=== PATIENT | female | born 1970 | race Caucasian/White ===

== ENCOUNTER 2017-10-15 18:45 | Inpatient (IN) | payer BC, OTHER ==
[~2017-10-15] VITALS: Ht 152.4 cm; Wt 68.5 kg
--- NOTE | ~2017-10-15 | CATHLAB ---
[facility] [address] [place] [address] INVASIVE PROCEDURE REPORT Name: VERA DIEGO Room #: 215-P [facility] IN [facility]#: [id number] Admission: 10/15/17 Attend Phys: Fantasma Rubin, Discharge: Date of : 72 Date of Service: 10/17/17 1254 Report #: [id number] THIS REPORT FOR: //name// APPROVED REPORT Study performed: 10/17/2017 07:14:26 Patient Details Patient Status: In-Patient Room #: The patient is a 46 year-old female Event Personnel Ismael Hernandez Hourly Team Members, Judd Doss RN, Sujatha Colmenares Sandifer, David Monitor Procedures Performed Left Heart Cath w/or w/o Coronaries [id number] [facility] [address] Place w/wo Plasty Single LAD [id number] Indication Abnormal ECG, Non-STEMI (>12 hrs to = 24 hrs) Risk Factors Arterial Hypertension, Hypercholesterolemia Admission/Lab Medications/Medications given during procedure Lipid Lowering Agents, ACEI/ARB, Platelet Aff. Inhib., Beta Sonia Procedure Narrative The Right Groin^ was infiltrated with 1% Lidocaine subcutaneous anesthesia. A PINNACLE 6FR Sheath #[id number] sheath was inserted into the RFA^. Coronary angiography was performed using coronary diagnostic catheters. The right coronary system was accessed and visualized with a JR4 catheter. The left coronary system was accessed and visualized with a JL3.5 catheter. The left ventricle was accessed and visualized with a PIGTAIL catheter. Left ventricular/Aortic Valve gradient assessed via catheter pullback. Left ventriculogram was performed in 30 degree projection. Closure device was deployed with a 6 Fr MYNXGRIP 6/7F #[id number]. The patient tolerated the procedure well and there were no complications associated with the procedure. There was no hematoma. Intraoperative Conscious Sedation Sedation start time: 7.39 Case end Time: 8.23 [facility] [place] [address] INVASIVE PROCEDURE REPORT Name: VERA DIEGO Room #: 215-P [facility] IN ..#: [id number] Admission: 10/15/17 Attend Phys: Fantasma Rubin, Discharge: Date of : 72 Date of Service: 10/17/17 1254 Report #: [id number] Fentanyl 50 mcg Fluoro Time: 6.23 minutes Dose: 666 mGy Contrast Type and Amount: Omnipaque 160 ml Diagnostic Cath Left Main No true left main with separate ostia for the LAD and circumflex LAD Severe 90% mid LAD stenosis just beyond the first septal perforating branch. The LAD was otherwise angiographically normal. Multiple aliquots of intracoronary nitroglycerin were administered with persistent, severe mid LAD stenosis Diagonal 1 Moderate, normal Diagonal 2 Distally arising and angiographically normal Circumflex Large, nondominant circumflex comprised of a single bifurcating marginal branch. This vessel was angiographically normal OM1 Large bifurcating marginal branch, angiographically normal Right Coronary Normal right coronary including moderate posterior descending and moderately large posterolateral branches Left Ventriculography The left ventricular ejection fraction is estimated to be 50%. Left ventricular wall motion abnormalities are present. There is no mitral insufficiency. Mild left ventricular dysfunction with hypokinesis involving the inferoapex. EF 50% Hemodynamics The aortic pressure is 156/75 mmHg with a mean of 96 mmHg. The left ventricular pressure is 165/12 mmHg with a mean of mmHg. The left ventricular end diastolic pressure is 19 mmHg. There was no gradient across the aortic valve upon pullback. Pullback from the left ventricle to the aorta revealed no gradient across the aortic valve. PCI Technique Lesion Anticoagulation was achieved with Heparin, Integrilin. Patient was preloaded with Brillinta. Percutaneous coronary intervention was performed on the mid left anterior descending artery segment. The lesion stenosis prior to intervention was 90% with JAYDEN 3 flow. A LAUNCHER 6FR JL3.5 #[id number] Guide Catheter was used to engage the LAD ostium. A Luge Wire .014 x 182CM #[id number] Interventional Guidewire was used to cross the lesion. [facility] [address] [place] [address] INVASIVE PROCEDURE REPORT Name: VERA DIEGO Nancy Room #: 215-P [facility] IN ..#: [id number] Admission: 10/15/17 Attend Phys: Fantasma Rubin, Discharge: Date of : 72 Date of Service: 10/17/17 1254 Report #: [id number] BALLOON DILATION A Balloon catheter Euphora RX 2.5 x 10 #[id number] was inserted and inflated up to 10.00atm for 25seconds. Repeat angiography revealed the following post-dilatation results: Moderate residual stenosis. STENT DEPLOYMENT A drug-eluting stent RESOLUTE RX 3.5 X 12 #[id number] was inserted and inflated up to 10.00atm for 28seconds. Repeat angiography revealed the following post-stent deployment results: 0% residual stenosis. POST STENT DEPLOYMENT BALLOON DILATION A Balloon catheter TREK NC RX 3.5 X 8 #[id number] was inserted and inflated up to 14.00atm for 30seconds. Repeat angiography revealed the following post-dilatation results: 0% residual stenosis. Additional Inflation: 14.00atm for 23seconds. Final angiography reveals 0 % stenosis with JAYDEN 3 flow. Conclusion 1. Mild left ventricular dysfunction with hypokinesis involving the inferoapex. Ejection fraction 50% 2. 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 Severe mid LAD stenosis 90% treated with 3.5 x 12mm Resolute stent 4. Normal circumflex and right coronary arteries. Right coronary dominant circulation Recommendations Cardiac Rehabilitation Referral Aggressive Medical Therapy Medications Administered SANJANA Inhibitor (any) ARB (any) Aspirin (any) Statin (any) [address] [address] INVASIVE PROCEDURE REPORT Name: VERA DIEGO Room #: 215-P [facility] IN M.R.#: [id number] Admission: 10/15/17 Attend Phys: Fantasma Rubin, Discharge: Date of : 72 Date of Service: 10/17/17 1254 Report #: [id number] Ticagrelor Cardiac Rehabilitation Referral <ELECTRONICALLY SIGNED> By: Ismael Hernandez MD, FACC 10/17/17 1254 1254 1254 Ismael Hernandez MD, FACC /INF
--- NOTE | ~2017-10-15 | 2DMMODE ---
[facility] [address] [place] [address] 2 D/M-MODE ECHOCARDIOGRAM Name: BRANDIEVERA J Room #: 215-P [facility] IN ..#: [id number] Admission: 10/15/17 Attend Phys: Fantasma Rubin, Discharge: Date of : 72 Date of Service: 10/16/17 0922 Report #: [id number] THIS REPORT FOR: //name// APPROVED REPORT Study performed: 10/16/2017 08:17:56 EXAM: Comprehensive 2D, Doppler, and color-flow Echocardiogram Patient Location: Bedside Room #: 215 Status: routine BSA: 1.68 HR: 62 bpm BP: 125/69 mmHg Rhythm: NSR Other Information Study Quality: Good Indications Chest Pain Hx: HTN 2D Dimensions RVDd: 31.61 mm LVEF(%): 57.36 (>50%) IVSd: 11.00 (7-11mm) LVOT Diam: 19.79 (18-24mm) LVDd: 45.01 mm PWd: 11.00 (7-11mm) Ascending Ao: 32.46 (22-36mm) LVDs: 31.50 (25-40mm) Aortic Root: 30.17 mm Back's LVEF: 57.36 % Volumes Left Atrial Volume (Systole) Single Plane 4CH: 38.18 mL Single Plane 2CH: 41.97 mL LA ESV Index: 25.00 mL/m2 Aortic Valve AoV Peak Clayton.: 1.37 m/s AO Peak Gr.: 7.52 mmHg LVOT Max P.14 mmHg LVOT Max V: 1.02 m/s CONNIE Vmax: 2.28 cm2 Mitral Valve E/A Ratio: 0.9 [facility] [address] [place] [address] 2 D/M-MODE ECHOCARDIOGRAM Name: VERA DIEGO Room #: 215-P [facility] IN ..#: [id number] Admission: 10/15/17 Attend Phys: Fantasma Rubin, Discharge: Date of : 72 Date of Service: 10/16/17 0922 Report #: [id number] MV Decel. Time: 237.53 ms MV E Max Clayton.: 0.68 m/s MV A Clayton.: 0.77 m/s MV PHT: 68.88 ms IVRT: 92.27 ms Pulmonary Valve PV Peak Clayton.: 1.01 m/s PV Peak Gr.: 4.06 mmHg Pulmonary Vein P Vein S: 0.51 m/s P Vein A: 0.33 m/s P Vein D: 0.41 m/s P Vein A Dur.: 101.5 msec P Vein S/D Ratio: 1.24 Tricuspid Valve TR Peak Clayton.: 2.14 m/s RAP Estimate: 5.00 mmHg TR Peak Gr.: 18.35 mmHg PA Pressure: 23.00 mmHg Left Ventricle The left ventricle is normal size. There is normal left ventricular wall thickness. Left ventricular systolic function is mildly depressed. Hypokinesis of distal septum, distal inferior wall and anteroapex LVEF is 50%. Mild diastolic dysfunction is present (impaired relaxation pattern). Right Ventricle The right ventricle is normal size. The right ventricular systolic function is normal. Atria The left atrium size is normal. The right atrium size is normal. Aortic Valve The aortic valve is normal in structure. No aortic regurgitation is present. There is no aortic valvular stenosis. Mitral Valve The mitral valve is normal in structure. Trace to mild mitral regurgitation. No evidence of mitral valve stenosis. Tricuspid Valve The tricuspid valve is normal in structure. Trace tricuspid regurgitation. Estimated PAP is 20-25mmHg. [facility] [place] [employer] [place] [address] 2 D/M-MODE ECHOCARDIOGRAM Name: VERA DIEGO Room #: 215-P ADM IN [facility]#: [id number] Admission: 10/15/17 Attend Phys: Fantasma Rubin, Discharge: Date of : 72 Date of Service: 10/16/17 0922 Report #: [id number] Pulmonic Valve The pulmonary valve is normal in structure. Trace pulmonic regurgitation. Great Vessels The aortic root is normal in size. The ascending aorta is normal in size. IVC is normal in size and collapses >50% with inspiration. Pericardium There is no pericardial effusion. <Conclusion> Left ventricular systolic function is mildly depressed. Hypokinesis of distal septum, distal inferior wall and anteroapex LVEF is 50%. Mild diastolic dysfunction The aortic valve is normal in structure. No aortic regurgitation or stenosis The mitral valve is normal in structure. Trace to mild mitral regurgitation. Trace tricuspid regurgitation. Estimated pulmonary artery pressure 20-25mmHg. There is no pericardial effusion. <ELECTRONICALLY SIGNED> By: Ismael Hernandez MD, FACC 10/16/17921 1 1 Ismael Hernandez MD, FACC /INF
--- NOTE | ~2017-10-15 | EKG ---
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: JODY : 1970 Requested By: Ismael Hernandez Order Number: [id number] MD: Ismael Hernandez Measurements Intervals [place] Rate: 63 P: 34 NV: 148 QRS: -20 QRSD: 111 T: -88 QT: 520 QTc: 533 Interpretive Statements Sinus rhythm Borderline left axis deviation Abnormal T, probable ischemia, widespread Prolonged QT interval Compared to ECG 10/16/2017 06:21:06 T-wave abnormality now present Prolonged QT interval now present Electronically Signed On 10-17-2017 17:40:36 CDT by Ismael Hernandez [email or web address] <ELECTRONICALLY SIGNED> By: Ismael Hernandez MD, [facility] 10/17/17 1740 0907 0907 Ismael Hernandez MD, [facility] /EPI
--- NOTE | ~2017-10-15 | EKG ---
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 : 1970 Requested By: Ismael Hernandez Order Number: [id number] MD: Ismael Hernandez Measurements Intervals [place] Rate: 68 P: 34 DE: 151 QRS: -22 QRSD: 90 T: 1 QT: 464 QTc: 494 Interpretive Statements Sinus rhythm Borderline left axis deviation Abnrm T, consider ischemia, anterolateral lds Compared to ECG 10/17/2017 09:07:09 T-wave abnormality less prominent Prolonged QT interval no longer present Electronically Signed On 10-18-2017 8:26:15 CDT by Ismael Hernandez [email or web address] <ELECTRONICALLY SIGNED> By: Ismael Hernandez MD, FACC 10/18/17 0826 0714 0714 Ismael Hernandez MD, [facility] /EPI
--- NOTE | ~2017-10-15 | HC ---
[facility] [place] [address] CONSULTATION Name: VERA DIEGO Nancy Room #: 215-P [facility] IN ..#: [id number] Admission: 10/15/17 Attend Phys: Fantasma Rubin MD Discharge: Date of : 72 Report #: [id number] THIS REPORT FOR: //name// CC: KENDALL Rubin REASON FOR CONSULTATION: Chest pain. HISTORY OF PRESENT ILLNESS: The patient is a nice 46-year-old woman with a history of hypertension. She presents on Saturday with low-grade fevers, chills and productive cough. She has had generalized body aches and was doing well up until yesterday around 6:00 p.m. when she had an episode of midsternal chest tightness, radiating across her entire chest and down both arms. Paramedics were summoned. She was given an aspirin and her pain resolved after about 10 minutes. Her Emergency Room course was notable for mild troponin elevation and a positive influenza screen. She has been pain free since admission. CT angiography of the chest demonstrated no pulmonary emboli, although there was mild LAD calcification seen. Presenting EKG demonstrated nonspecific T-wave abnormality. She denies heart failure symptoms including orthopnea, paroxysmal nocturnal dyspnea or lower extremity edema. No history of palpitations, near syncope or syncope. ALLERGIES: Include PROZAC, HYDROCODONE, OXYCODONE. She reports being ALLERGIC to NARCOTICS. SOCIAL HISTORY: She is nonsmoker, nondrinker. FAMILY HISTORY: Unremarkable for premature coronary disease. REVIEW OF SYSTEMS: All systems negative except as that noted above. PHYSICAL EXAMINATION: GENERAL: This is a pleasant woman in no distress. VITAL SIGNS: Blood pressure is 130/80, heart rate of 80 and regular. She has frequent coughing spells, temperature is 98.6 degrees. HEENT: There are neither xanthelasma, subcutaneous xanthomata, oral mucosal or digital cyanosis or kyphoscoliosis present. CHEST: Clear to auscultation and percussion. CARDIOVASCULAR: Regular rate and rhythm with normal S1, S2. No murmurs, rubs. ABDOMEN: Soft and nontender. EXTREMITIES: Without cyanosis, clubbing or edema. Radial pulses are 2+. NEUROLOGIC: She is alert with a nonfocal exam. LABORATORY DATA: Sodium is 140, potassium 3.8, creatinine 0.7. Troponin 0.44. Cholesterol 170, triglycerides 211, LDL 80. White count 7.9, hemoglobin 13, hematocrit 39, and platelet count 287. Chest x-ray demonstrates no infiltrates. [place] [address] CONSULTATION Name: VERA DIEGO Room #: 215-P [facility] IN ..#: [id number] Admission: 10/15/17 Attend Phys: Fantasma Rubin MD Discharge: Date of : 72 Report #: [id number] IMPRESSION: 1. Chest pain consistent with non-Q-wave myocardial infarction, possible myocarditis from influenza. 2. Influenza. 3. Hypertension. 4. Dyslipidemia. 5. Coronary artery calcification. RECOMMENDATIONS: 1. Echocardiogram with Doppler. 2. Coronary angiography. I have discussed the angiographic procedure in detail including its associated risks. After a thorough discussion of the procedure, its risks and alternatives and after answering her questions in detail, she is agreeable to proceeding. Further thoughts and plans will be forthcoming based on this evaluation. Thank you for asking me to participate in her care. <ELECTRONICALLY SIGNED> By: Ismael Hernandez MD, [facility] 10/18/17 0837 0728 0755 Ismael Hernandez MD, FAC /nt
--- NOTE | ~2017-10-15 | EKG ---
[address] [address] ELECTROCARDIOGRAM REPORT Name: VERA DIEGO Room #: 215-P ADM IN M.R.#: [id number] Admission: 10/15/17 Attend Phys: Fantasma Rubin MD Discharge: Date of : 72 Report #: [id number] THIS REPORT FOR: //name// [facility] Test Date: 2017-10-16 Test Time: 06:21:06 Pat Name: VERA DIEGO Department: Room: 215 P Gender: F Business Director: JODY : 1970 Requested By: Ashutosh Terrazas Order Number: [id number] MD: Measurements Intervals [place] Rate: 67 P: 31 NE: 150 QRS: -22 QRSD: 88 T: 26 QT: 410 QTc: 433 Interpretive Statements Sinus rhythm Borderline left axis deviation Compared to ECG 10/15/2017 18:49:46 No significant changes [email or web address] By: 0 0 Epiphany Epiphany, /EPI
--- NOTE | ~2017-10-15 | EKG ---
[facility] [place] [address] ELECTROCARDIOGRAM REPORT Name: VERA DIEGO [facility] [id number] Admission: 10/15/17 Attend Phys: Discharge: Date of : 72 Report #: [id number] THIS REPORT FOR: //name// [facility] ED Test Date: 2017-10-15 Test Time: 18:49:46 Pat Name: VERA DIEGO Department: Room: Gender: F Felt Hooker: MZOOK : 1970 Requested By: Ashutosh Terrazas Order Number: [id number] MD: Ismael Hernandez Measurements Intervals [place] Rate: 69 P: 17 CA: 153 QRS: -8 QRSD: 86 T: 32 QT: 405 QTc: 434 Interpretive Statements Sinus rhythm RSR' in V1 or V2, probably normal variant No previous ECG available for comparison Electronically Signed On 10-15-2017 19:32:38 CDT by Ismael Hernandez [email or web address] <ELECTRONICALLY SIGNED> By: Ismael Hernandez MD, [facility] 10/15/17 1932 1849 1849 Ismael Hernandez MD, FACC /EPI
--- NOTE | ~2017-10-15 | EKG ---
[place] [address] [facility] [place] [address] ELECTROCARDIOGRAM REPORT Name: DIEGOVERA Room #: 215-P ADM IN M.R.#: [id number] Admission: 10/15/17 Attend Phys: Fantasma Rubin MD Discharge: Date of : 72 Report #: [id number] THIS REPORT FOR: //name// [facility] Test Date: 2017-10-16 Test Time: 06:21:06 Pat Name: VERA DIEGO Department: Room: 215 P Gender: F Sql Etl Developer: JODY : 1970 Requested By: Esperanza Gautam Order Number: [id number] MD: Ismael Hernandez Measurements Intervals [place] Rate: 67 P: 31 DC: 150 QRS: -22 QRSD: 88 T: 26 QT: 410 QTc: 433 Interpretive Statements Sinus rhythm Borderline left axis deviation Compared to ECG 10/15/2017 18:49:46 No significant changes Electronically Signed On 10-16-2017 15:02:32 CDT by Ismael Hernandez [email or web address] <ELECTRONICALLY SIGNED> By: Ismael Hernandez MD, [facility] 10/16/17 1502 0 0 Ismael Hernandez MD, [facility] /EPI
[2017-10-15 18:47] VITALS: BP 133/511
[2017-10-15 19:52] LABS: BASOPHILS 0.3 % (0.0-2.0); EOSINOPHILS 2.4 % (0.0-3.0); HEMATOCRIT 38.2 % (37.0-47.0); HEMOGLOBIN 12.8 gm/dL (12.0-15.0); LYMPHOCYTES 7.1 % (24.0-44.0); MCH 31.3 pg (26.0-34.0); MCHC 33.6 g/dL (28.0-37.0); MCV 93.3 fL (80.0-100.0); MONOCYTES 7.1 % (1.0-8.0); PLATELET COUNT 268 thou/uL (150-400); POLYS 83.1 % (36.0-66.0); RBC 4.09 mil/uL (4.20-5.00); WBC 10.8 thou/uL (4.0-11.0)
[2017-10-15 20:01] LABS: CALCIUM 8.6 mg/dL (8.5-10.1); CREATININE 0.7 mg/dL (0.6-1.0); POTASSIUM 3.8 mmol/L (3.5-5.1)
[2017-10-15 20:10] LABS: TROPONIN-I 0.2 ng/mL (<0.06)
[2017-10-15 21:56] LABS: APTT 25.9 Seconds (24.5-32.8); PROTIME 9.3 Seconds (9.3-11.4)
[2017-10-15 22:03] VITALS: BP 153/68
[2017-10-15] MEDS ORDERED: BYSTOLIC 5 MG5 M1 PO (23:17)
[2017-10-15] MEDS ORDERED: VYVANSE60 MG PO (23:18)
[2017-10-15] MEDS ORDERED: TROKENDI XR25 MG PO (23:19)
[2017-10-15 23:26] VITALS: BP 133/80
[2017-10-16 04:30] VITALS: BP 136/81
[2017-10-16 05:14] LABS: ANION GAP 13 mmol/L (7-16); BUN 10 mg/dL (7-18); CHLORIDE 107 mmol/L (98-107); CO2 20 mmol/L (21-32); CREATININE 0.7 mg/dL (0.6-1.0); GLUCOSE 99 mg/dL (74-106); POTASSIUM 3.8 mmol/L (3.5-5.1); SODIUM 140 mmol/L (136-145)
[2017-10-16 05:22] LABS: CHOLESTEROL 170 mg/dL (<200); HDL CHOLESTEROL 48 mg/dL (>40); HEMATOCRIT 39.8 % (37.0-47.0); HEMOGLOBIN 13.2 gm/dL (12.0-15.0); LDL CHOLESTEROL 80 mg/dL (<100); MCH 31.1 pg (26.0-34.0); MCHC 33.3 g/dL (28.0-37.0); MCV 93.5 fL (80.0-100.0); RBC 4.25 mil/uL (4.20-5.00); RDW 13.8 % (10.5-14.5); SGOT 22 U/L (15-37); SGPT 20 U/L (30-65); TC:HDL 3.5 Ratio (Not establshd); TOTAL BILIRUBIN 0.1 mg/dL (<0.1-1.0); TOTAL PROTEIN 6.8 g/dL (6.4-8.2); TRIGLYCERIDE 211 mg/dL (<150); TROPONIN-I 0.44 ng/mL (<0.06); VLDL 42 mg/dL (<40); WBC 7.9 thou/uL (4.0-11.0)
[2017-10-16 05:24] LABS: SERUM ASSESSMENT Clear
[2017-10-16 08:02] VITALS: BP 125/69
[2017-10-16 11:33] VITALS: BP 123/75
[2017-10-16 15:11] LABS: GLYCOHEMOGLOBIN (HGB A1C) 4.8 % (4.8-5.6)
[2017-10-16 15:32] VITALS: BP 123/76
[2017-10-16 19:41] VITALS: BP 126/70
[2017-10-16 23:31] VITALS: BP 108/65
[2017-10-17] VITALS (11 sets, daily range): BP systolic 106–131; BP diastolic 45–80
[2017-10-18 03:47] LABS: ALBUMIN 2.9 g/dL (3.4-5.0); CALCIUM 8.4 mg/dL (8.5-10.1); CREATININE 0.8 mg/dL (0.6-1.0); TOTAL BILIRUBIN 0.2 mg/dL (<0.1-1.0); TOTAL PROTEIN 6.3 g/dL (6.4-8.2); TROPONIN-I 0.59 ng/mL (<0.06)
[2017-10-18 04:57] VITALS: BP 94/50
[2017-10-18 05:37] LABS: HEMATOCRIT 34.1 % (37.0-47.0); HEMOGLOBIN 11.5 gm/dL (12.0-15.0); MCHC 33.7 g/dL (28.0-37.0); MCV 92.1 fL (80.0-100.0); RBC 3.7 mil/uL (4.20-5.00); RDW 13.6 % (10.5-14.5); WBC 13.9 thou/uL (4.0-11.0)
[2017-10-18 07:48] VITALS: BP 108/41
[2017-10-18 08:00] VITALS: BP 108/70
[2017-10-18] MEDS ORDERED: ASPIR 8181 MG PO (08:59)
[2017-10-18] MEDS ORDERED: ATORVASTATIN CA40 MG PO (08:59)
[2017-10-18] MEDS ORDERED: BRILINTA90 MG PO (08:59)
[2017-10-18 10:02] VITALS: BP 108/70
[2017-10-18 11:35] VITALS: BP 108/70
== END 2017-10-18 11:48 | disposition home or self-care (01) | DRG 247 ==
LOC: ER 18:45 → EROBS 21:20 → 2N 21:20
PROVIDERS: Emergency Medicine; Internal Medicine; Nurse Practitioner Acute Care
PROC: B24BZZ4 Ultrasonography of Heart with Aorta, Transesophageal (ICD-10-PCS; principal; 2017-10-16)
PROC: 4A023N7 Measurement of Cardiac Sampling and Pressure, Left Heart, Percutaneous Approach (ICD-10-PCS; 2017-10-17)
PROC: 027034Z Dilation of Coronary Artery, One Artery with Drug-eluting Intraluminal Device, Percutaneous Approach (ICD-10-PCS; 2017-10-17)
PROC: B2111ZZ Fluoroscopy of Multiple Coronary Arteries using Low Osmolar Contrast (ICD-10-PCS; 2017-10-17)
PROC: B2151ZZ Fluoroscopy of Left Heart using Low Osmolar Contrast (ICD-10-PCS; 2017-10-17)
DX: I21.4 Non-ST elevation (NSTEMI) myocardial infarction (principal); J10.1 Influenza due to other identified influenza virus with other respiratory manifestations; E78.5 Hyperlipidemia, unspecified; I25.10 Atherosclerotic heart disease of native coronary artery without angina pectoris; F90.9 Attention-deficit hyperactivity disorder, unspecified type; F41.9 Anxiety disorder, unspecified; I10 Essential (primary) hypertension; G43.909 Migraine, unspecified, not intractable, without status migrainosus; Z28.21 Immunization not carried out because of patient refusal; Z79.899 Other long term (current) drug therapy; Z88.8 Allergy status to other drugs, medicaments and biological substances; Z82.49 Family history of ischemic heart disease and other diseases of the circulatory system
CPT/HCPCS: 10081